=== PATIENT | female | born 1950 | race Caucasian/White ===

== ENCOUNTER 2021-07-13 23:53 | Emergency (ER) | payer MEDICARE, OTHER, SELFPAY ==
[2021-07-13 23:56] VITALS: BP 202/79; PULSE 74; RESP 18; TEMP 36.8; O2SAT 99
[2021-07-14 00:24] LABS: Alanine Aminotransferase 44 IU/L (<35); Albumin 4.5 g/dL (3.5-5.0); Albumin Globulin Ratio 1.4 (1.0-2.8); Alkaline Phosphatase 55 U/L (38-126); Aspartate Aminotransferase 40 IU/L (14-36); BUN Creatinine Ratio 27.8 (6-22); Bilirubin Total 0.6 mg/dL (0.2-1.3); Blood Urea Nitrogen 20 mg/dL (7-17); Calcium 9.9 mg/dL (8.4-10.2); Carbon Dioxide 28 mmol/L (22-32); Chloride 103 mmol/L (98-107); Estimated Glomerular Filt Rate > 60.0 mL/min (>60); Globulin 3.3 g/dL (1.7-4.1); Glucose 254 mg/dL (80-110); HEMOLYSIS 22 (0-50); Lipase 51 U/L (23-300); Potassium 3.9 mmol/L (3.4-5.1); Sodium 139 mmol/L (137-145); Total Protein 7.8 g/dL (6.3-8.2)
[2021-07-14 00:29] VITALS: PULSE 86; O2SAT 98
[2021-07-14 00:30] VITALS: PULSE 80; O2SAT 98
[2021-07-14 00:31] VITALS: BP 157/69; PULSE 70; O2SAT 99
[2021-07-14 00:31] LABS: Add Manual Diff / Slide Review NO; Basophils Absolute Auto 100 /uL (0-100); Basophils Percent Auto 0.5 % (0-2); Eosinophils Absolute Auto 200 /uL (0-450); Eosinophils Percent Auto 1.5 % (2-4); Hematocrit 44.8 % (36-46); Hemoglobin 14.6 g/dL (12.0-16.0); Lymphocytes Absolute Auto 2400 /uL (1100-4500); Lymphocytes Percent Auto 16.7 % (25-40); Mean Corpuscular HGB Conc 32.6 % (30-36); Mean Corpuscular Hemoglobin 31.5 PG (26-34); Mean Corpuscular Volume 96.6 fL (80-100); Monocytes Absolute Auto 600 /uL (0-900); Monocytes Percent Auto 4.1 % (3-14); Neutrophils Absolute Auto 11200 /uL (1500-7000); Neutrophils Percent Auto 77.2 % (50-75); Platelet Count 183 X10^3/uL (150-400); Red Blood Cell Count 4.64 X10^6/uL (4.0-5.2); Red Cell Distribution Width 12.9 % (11.6-14.8); White Blood Cell Count 14.6 X10^3/uL (4.5-11.0)
[2021-07-14 00:33] LABS: Bacteria Urine Few (2-10); Calcium Oxalate Crystals Urine Occasional; RBC Urine 1-5/HPF (0-5/HPF); Squamous Epithelial Cell Urine 1-5 /HPF (0-5/HPF); WBC Urine 0-1/HPF (0-5/HPF)
[2021-07-14 00:34] LABS: Culture Indicated Urine Cult Not Indicated; Hyaline Casts Urine 0-1/LPF; Mucus Urine 1+ (Negative)
--- NOTE | 2021-07-14 00:45 | ED_ITS ---
HPI - Abdominal Pain General Chief Complaint: Abdominal Pain Stated Complaint: Abd Pain Time Seen by Provider: 07/14/21 00:05 Source: patient and EMS Mode of arrival: EMS History of Present Illness HPI narrative: 71-year-old woman with a history of breast cancer currently on letrozole, hypertension and diet-controlled diabetes not currently on medications presents after developing abdominal pain this evening. She states that they had dinner about 430 x 7 p.m. she had increasing pain that was severe by 10:00 p.m.. She passed a very firm stool followed by a liquid stool and then felt dizzy standing up enough so that she was lying on the floor to prevent falling. She and her called 911 for further evaluation. She states th at with her letrozole and her calcium supplementation that she frequently has constipation and typically has a bowel movement once to every other day and it typically is quite firm. She has not had abdominal pain quite this severe. She has not noticed fevers, chills, nausea. When she had the bowel movement the abdominal pain has completely resolved. She describes no dysuria, flank pain, chest pain, palpitations, headaches. Review of Systems Review of Systems Narrative: Remainder of complete review of systems is otherwise unremarkable except for that included in the HPI. Patient History Medical History (Updated 07/14/21 @ 01:35 by Imani Castaneda MD) Constipation Hypertension Type 2 diabetes mellitus Exam Narrative Exam Narrative: General: Healthy appearing, in no acute distress. Able to give a complete and coherent history. Well-nourished well-developed HEENT: Moist mucous membranes, normal sclera with reactive pupils, Neck: supple Respiratory: Lungs are clear to auscultation, no wheezing no rales no rhonchi. Full and symmetrical air movement Cardiac: Regular rate and rhythm no murmurs no bruits Abdomen: Soft, nontender, good bowel tones, no flank pain Skin: Warm and dry, no rashes Neurologic: Grossly neurologically intact with no obvious asymmetries or abnormalities Extremities: No trauma, well perfused Psych: Cooperative, appropriate insight and affect Initial Vital Signs Initial Vital Signs: Vital Signs Temperature 98.2 F 07/13/21 23:56 Pulse Rate 74 07/13/21 23:56 Respiratory Rate 18 07/13/21 23:56 Blood Pressure 202/79 H 07/13/21 23:56 Pulse Oximetry 99 07/13/21 23:56 Course Orders Ordered: ED Orders 07/14/21 00:00 Complete Blood Count AUTO DIFF Stat Comprehensive Metabolic Panel Stat Lipase Stat 07/14/21 00:13 EKG-12 Lead Stat 07/14/21 00:21 Urine Microscopic Stat Vital Signs Vital signs: Vital Signs - 8 hr 07/13/21 23:56 Temperature 98.2 F Pulse Rate 74 Respiratory Rate 18 Blood Pressure 202/79 H Pulse Oximetry 99 MDM - Abdominal Pain Lab Data Result diagrams: 07/14/21 00:00 07/14/21 00:00 Labs: Lab Results 07/14/21 07/14/21 07/14/21 Range/Units 00:00 00:00 00:21 WBC 14.6 H (4.5-11.0) X10^3/uL RBC 4.64 (4.0-5.2) X10^6/uL Hgb 14.6 (12.0-16.0) g/dL Hct 44.8 (36-46) % MCV 96.6 (80-100) fL MCH 31.5 (26-34) PG MCHC 32.6 (30-36) % RDW 12.9 (11.6-14.8) % Plt Count 183 (150-400) X10^3/uL Neut % (Auto) 77.2 H (50-75) % Lymph % (Auto) 16.7 L (25-40) % Chambers % (Auto) 4.1 (3-14) % Eos % (Auto) 1.5 L (2-4) % Baso % (Auto) 0.5 (0-2) % Neut # (Auto) 03385 H (0345-2793) /uL Lymph # (Auto) 2400 (4993-4034) /uL Chambers # (Auto) 600 (0-900) /uL Eos # (Auto) 200 (0-450) /uL Baso # (Auto) 100 (0-100) /uL Sodium 139 (137-145) mmol/L Potassium 3.9 (3.4-5.1) mmol/L Chloride 103 (98-107) mmol/L Carbon Dioxide 28 (22-32) mmol/L BUN 20 H (7-17) mg/dL Creatinine 0.72 (0.52-1.04) mg/dL Estimated GFR > 60.0 (>60) mL/min BUN/Creatinine Ratio 27.8 H (6-22) Glucose 254 H (80-110) mg/dL Calcium 9.9 (8.4-10.2) mg/dL Total Bilirubin 0.6 (0.2-1.3) mg/dL AST 40 H (14-36) IU/L ALT 44 H (<35) IU/L Alkaline Phosphatase 55 (38-126) U/L Total Protein 7.8 (6.3-8.2) g/dL Albumin 4.5 (3.5-5.0) g/dL Globulin 3.3 (1.7-4.1) g/dL Albumin/Globulin Ratio 1.4 (1.0-2.8) Lipase 51 (23-300) U/L Urine RBC 1-5/hpf (0-5/HPF) Urine WBC 0-1/hpf (0-5/HPF) Ur Squamous Epith Cells 1-5 /hpf (0-5/HPF) Calcium Oxalate Crystal Occasional H Urine Bacteria Few (2-10) H (None) Hyaline Casts 0-1/lpf (None) Urine Mucus 1+ H (Negative) Ur Culture Indicated? Cult not indicated Point of care testing: Urine Dip Bedside Urine Glucose 250 mg/dl Bedside Urine Bilirubin - Negative Bedside Urine Ketone - Negative Urine Specific [place] 1.030 Bedside Urine Occult Blood ++ Bedside Urine pH 6 Bedside Urine Protein +/- 15 Bedside Urine Urobilinogen - Negative Bedside Urine Nitrite - Negative Bedside Urine Leukocytes - Negative Esterase MDM Narrative Medical decision making narrative: 71-year-old woman who presents with abdominal pain that is entirely resolved after having a bowel movement. Blood work was done mildly elevated white blood cell count and mildly elevated AST and ALT. At this point with symptoms entirely resolved I suspect that the majority of the pain was related to constipation. Diverticulitis or intra-abdominal process is less likely. No evidence for urinary tract infection or pyelonephritis. Reassurance is given and we discussed adding MiraLax to prevent recurrent episodes of constipation. Questions are answered and she is safe for home discharge Discharge Plan Departure Patient Disposition: Home Clinical Impression: Constipation Qualifiers: Constipation type: unspecified constipation type Qualified Code(s): K59.00 - Constipation, unspecified Abdominal pain Qualifiers: Abdominal location: left lower quadrant Qualified Code(s): R10.32 - Left lower quadrant pain Instructions: DI for Constipation Activity Restrictions/Additional Instructions: Thank you for coming in today Your exam and blood work were reassuring. The fact that your pain has completely resolved after a bowel movement is very reassuring. For your chronic constipation on the suggest that you try a cap full of MiraLa x(the purple cap holds 17 g which is the standard single dose) dissolved in a large glass of water or a cup of coffee or tea. Doing this every day as part of a regular bowel regimen may help prevent future abdominal pain due to constipation If you have new or worsening symptoms please feel free to return and I am happy to re-evaluate
[2021-07-14 01:00] VITALS: BP 140/64; PULSE 69; O2SAT 98
[2021-07-14 01:30] VITALS: PULSE 69; O2SAT 98
[2021-07-14 01:31] VITALS: BP 138/65; PULSE 67; O2SAT 97
== END 2021-07-14 01:47 | disposition home or self-care (01) ==
PROVIDERS: Emergency Provider Emergency Medicine
DX: R10.32 Left lower quadrant pain (principal); K59.00 Constipation, unspecified
CPT/HCPCS: 36415; 80053; 81003; 81015; 83690; 85025; 99283

== ENCOUNTER → 2024-11-06 08:50 | Outpatient (CLI) | payer MEDICARE, OTHER, SELFPAY ==
--- NOTE | 2024-11-06 10:37 | DI.CT.S_ITS ---
PROCEDURE: CT ABDOMEN PELVIS W CON INDICATIONS: LOCALIZED LLQ PAIN C/W DIVERTICULITIS TECHNIQUE: After the administration of intravenous contrast, axial sections acquired from the lung bases to the pubic symphysis. Coronal and sagittal reformats were performed. For radiation dose reduction, the following was used: automated exposure control, adjustment of mA and/or kV according to patient size. COMPARISON: [facility], MR, MR ABDOMEN PANCREAS PROTOCOL, 07/25/2023, 8:10. [facility], CT, CT ABDOMEN PELVIS WITH CONTRAST, 05/18/2023, 12:50. FINDINGS: Image quality: Diagnostic. Lower Chest: No significant findings. ABDOMEN: Liver: No solid mass. Stable right hepatic cysts. Gallbladder: No radiopaque gallstones or wall thickening. Biliary ducts: No biliary dilation. Pancreas: No ductal dilation. Cystic lesion at the pancreatic body is better demonstrated on prior MRI, but does not appear significantly changed in CT. Spleen: Size is within normal limits. Adrenal Glands: 1.3 cm exophytic right adrenal nodule is stable in size when compared to the CT from 05/18/2023. No discrete left adrenal nodule. Kidneys and Ureters: No hydronephrosis. No solid mass. No complex renal cystic lesion which requires follow up. Mild multifocal renal cortical scarring bilaterally. No perinephric stranding. Stomach and Bowel: Moderate to large volume of stool in the colon. Normal appendix. Small bowel loops and stomach are unremarkable. No pericolonic fat stranding. Peritoneum: No abnormal intraperitoneal fluid. No free air. Ventral Wall: Tiny fat containing periumbilical hernia. Abdominal Nodes: No retroperitoneal or mesenteric adenopathy by size criteria. Vessels: Aorta and inferior vena cava are normal in size. PELVIS: Pelvic Organs: Unremarkable. Bladder: No bladder wall thickening, accounting for underdistention. Pelvic Nodes: No enlarged lymph nodes. Miscellaneous: No inguinal hernias are seen. Bones: No aggressive osseous abnormality. IMPRESSION: 1. No acute inflammatory process identified in the abdomen or pelvis. 2. Moderate to large volume of colonic stool. Correlate for constipation. 3. Stable 1.3 cm right adrenal nodule. 4. Cystic lesion in the pancreatic body is better demonstrated on prior MRI, but does not appear significantly changed. Patient will be due for repeat MR pancreas in 06/2025. Approved by: Barrie Butt M.D. on 11/06/2024 at 15:22
== END ==
PROVIDERS: PCP Family Medicine; Referring Provider Family Medicine; Visit Provider Family Medicine
DX: K86.2 Cyst of pancreas (principal); K76.0 Fatty (change of) liver, not elsewhere classified; E27.9 Disorder of adrenal gland, unspecified; R10.31 Right lower quadrant pain; R10.32 Left lower quadrant pain
CPT/HCPCS: 74177; Q9967

== ENCOUNTER → 2025-03-27 15:41 | Outpatient (CLI) | payer MEDICARE, OTHER, SELFPAY ==
--- NOTE | 2025-03-27 15:44 | DI.RAD.S_ITS ---
PROCEDURE: XR SACRUM COCCYX MIN 2V INDICATIONS: Other specified diseases of anus and rectum TECHNIQUE: 3 views of the sacrum and coccyx acquired. COMPARISON: [facility], CT, CT ABDOMEN PELVIS W CON, 11/06/2024, 9:57. FINDINGS: Bones: No fractures or dislocations. No suspicious bony lesions. [id number] bilateral hip DJD. Mild degenerative changes at the lower lumbar spine. Soft tissues: Visualized bowel gas pattern is normal. No suspicious soft tissue densities. IMPRESSION: No acute osseous abnormality. Dictated by: Aurelio Lynn M.D. on 03/28/2025 at 12:46 Approved by: Aurelio Lynn M.D. on 03/28/2025 at 12:49
== END ==
PROVIDERS: PCP Family Medicine; Referring Provider Family Medicine; Visit Provider Family Medicine
DX: G89.29 Other chronic pain (principal); K62.89 Other specified diseases of anus and rectum; M16.0 Bilateral primary osteoarthritis of hip
CPT/HCPCS: 72220